=== PATIENT | male | born 1965 | race Caucasian/White ===

== ENCOUNTER → 2018-08-11 12:04 | Outpatient (CLI) | payer OTHER, SELFPAY ==
--- NOTE | 2018-08-11 12:57 | DI.CT.S_ITS ---
PROCEDURE: CT SOFT TISSUE NECK W CON INDICATIONS: RIGHT VOCAL CORD PARALYSIS TECHNIQUE: After the administration of intravenous contrast, 3.0 mm axial sections acquired from the skull base to the upper chest. Additional 1.5 mm axial sections acquired through the true vocal cords. 1 mm thick coronal reformats were generated. For radiation dose reduction, the following was used: automated exposure control. COMPARISON: [facility], CT, SINUS SCREEN WO CONTRAST, 03/10/2015, 14:26. FINDINGS: Image quality: Excellent. Vocal cords: The vocal cords demonstrate a normal, symmetric appearance. No masses or abnormal enhancement can be seen involving. No masses can be seen within the false vocal cords or within the region. Neck spaces: The oropharynx, nasopharynx, and pharynx demonstrate no mucosal lesions. The pyriform sinuses, epiglottis, vallecular, and tongue base all appear normal. Extramucosal spaces of the neck are unremarkable. Lymph nodes: No enlarged lymph nodes seen throughout the neck. Vessels: Visualized vasculature appears patent. Glands: The parotid and submandibular glands appear normal. Thyroid gland demonstrates no significant CT abnormality. Miscellaneous: Visualized brain and orbits appear unremarkable. Lung apices appear clear. Superficial soft tissues appear normal. Bones: No suspicious bony lesions. Visualized sinuses and mastoids appear unremarkable. Degenerative changes are seen, with at least moderate disc space narrowing at C5-C6 and C6-C7. Endplate irregularity and endplate sclerosis can be seen at these levels. IMPRESSION: No focal vocal cord abnormality is seen. As clinically appropriate, please consider a dedicated laryngoscopy, if not already recently done. Dictated by: Ryan [place] M.D. on 08/11/2018 at 12:59 Approved by: Ryan [place] M.D. on 08/11/2018 at 13:02
== END ==
PROVIDERS: Family Provider Physician Assistant; PCP Physician Assistant; Visit Provider Otolaryngology
DX: J38.01 Paralysis of vocal cords and larynx, unilateral (principal)
CPT/HCPCS: 70491; Q9967

== ENCOUNTER 2018-08-28 06:55 | Day surgery (SDC) | payer OTHER, SELFPAY ==
--- NOTE | 2018-08-28 | PATH_ITS ---
[facility] Accession Number: [id number] . 01 Material submitted: . rectum - RECTAL POLYP . 01 Clinical history: . SCREENING COLONOSCOPY . 02 Diagnosis: Rectum, Polyp, Biopsy: Hyperplastic polyp. [facility]/09/01/2018 . 02 Electronically signed: . Lisa Mckeon MD, Pathologist NPI- [id number] . 01 Gross description: . RECTAL POLYP: Received in formalin are 2 fragment(s) of benito, soft tissue measuring 0.1 x 0.1 x 0.1 cm to 0.3 x 0.2 x 0.2 cm which is entirely submitted and submitted entirely in 1 cassette(s) /DMC /DMC . 02 Pathologist provided ICD-10: K62.1 . 02 CPT . 923923 Performed at: 01 [facility] [address] [id number] MD Zach Frank MD Phone: [phone] Performed at: 02 [facility] [address] [address] [place], [place] [id number] MD Lisa Mckeon MD Phone: [phone]
[2018-08-28 07:15] VITALS: BP 127/82; PULSE 44; RESP 15; TEMP 36.6; O2SAT 98
[2018-08-28 07:16] VITALS: BMI 25.0
[2018-08-28] MEDS: SODIUM CHLORIDE 0.9% 1,000 ML 200 ML IV (07:45)
--- NOTE | 2018-08-28 07:48 | PM.HP.1 ---
History of Present Illness Date Patient Seen: 08/28/18 Time Patient Seen: 07:48 Chief complaint: [id number] SCREENING COLONOSCOPY Narrative: 52-year-old man presents for 1st screening colonoscopy. He has a history approximately 25 years ago of undergoing a colonoscopy for a in intestinal concerned that he cannot remember. At the time no polyps were detected. No 1st degree family relatives with history of colon or rectal cancer, no family history of polyps. No history of IBD . Tolerated his prep well No intestinal complaints Patient History Medical History (Updated 08/28/18 @ 07:49 by Paul Stein MD) Asthma (Acute) GERD (gastroesophageal reflux disease) (Acute) Social History household members: spouse Smoking Status: Former smoker (Quit 2013) Tobacco: How many years used: 20 second hand exposure: No alcohol intake: current (Beer a couple times a week) substance use type: does not use Family & Social History Social History: household members spouse Tobacco & Substance use: Smoking Status Former smoker alcohol intake current Meds Home Medications Medication Instructions Recorded Confirmed Type varicella-zoster glycoE [id number] 50 mcg IM ONCE #1 each 04/16/18 07/04/18 Rx adj(PF) 50 mcg/0.5 mL IM susp, kit Allergies Allergy/AdvReac Type Severity Reaction Status Date / Time No Known Drug Allergies Allergy Unverified 07/04/18 11:26 Review of Systems Constitutional Constitutional: Denies fever(s) Eyes Eyes: Denies bulging eyes ENT Ears, Nose, Mouth, and Throat: No lip swelling Cardiovascular Cardiovascular: Denies generalize swelling Respiratory Respiratory: Denies stridor Gastrointestinal Gastrointestinal: Denies coffee ground emesis Musculoskeletal Musculoskeletal: Denies loss of height Integumentary/Breasts Skin/Breast: Denies wounds Neurologic Neurologic: Denies abnormal speech and Denies confusion Psychiatric Psychiatric: Denies confusion Endocrine Endocrine: Denies deepening of the voice Hematologic/Lymphatic Hematologic/Lymphatic: Denies lymphadenopathy Allergic/Immunologic Allergic/Immunologic: Denies lip swelling Exam Vital Signs (past 8 hours): - 08/28/18 07:15 Temperature 97.9 F Pulse Rate 44 L Respiratory Rate 15 Blood Pressure 127/82 Pulse Oximetry 98 Oxygen Delivery Method Room Air Const General: cooperative and healthy appearing Orientation: alert HENMT Head: normal to inspection Nose: nares normal Mouth: oral mucosae normal and lip normal Eyes Eyelids: eyelids normal Conjunctivae: conjunctivae normal Sclera: sclerae normal Neck Neck: supple and other (No thyromegally) Chest Chest: other (LCTAB , regular respiratory effort) Cardio Rhythm: regular rhythm Heart Sounds: S1 normal, S2 normal, no gallops, no murmurs and no rubs Skin General: no rashes or lesions noted Neuro General: alert and awake Psych Appearance: grossly normal Affect: normal affect Assessment & Plan Assessment & Plan narrative: 52-year-old man presents for 1st screening colonoscopy Risks of procedure including , perforation, hypoxia, missed lesion all discussed Patient rated proceed
[2018-08-28] MEDS: MIDAZOLAM 5 MG/5 ML VIAL IV (08:07)
[2018-08-28] MEDS: fentaNYL 250 MCG/5 ML INJ IV (08:08)
--- NOTE | 2018-08-28 08:31 | PM.OP.ENDO ---
Operative Date/Time/Diagnoses Date of procedure: 08/28/18 Time of procedure: 08:31 Pre-op diagnosis: colorectal cancer screening Post-op diagnosis: same Procedure & Clinicians Study performed: Complete screening colonoscopy Cold biopsy forcep polypectomy x1 -distal rectal Same procedure as scheduled: Yes Indications: 52-year-old man presents for 1st of screening colonoscopy -did have a diagnostic colonoscopy some 25 years ago, did not identify polyps at that time Surgeon: Paul Stein Procedure Notes SCOAP/Timeout: Completed Procedure in detail: Patient was brought to the endoscopy suite, time-out was completed. He was sedated over the course of the entire procedure with a total of 6 mg of midazolam and 150 micro g of fentanyl. Digital rectal exam was performed which was without mucosal lesions. His prostate was somewhat firm but without any nodularity. 160 cm colonoscope was advanced through the folds of the rectum rectosigmoid junction and the curvature of the colon until the cecum was encountered. A prominent ileocecal valve was identified as was the appendiceal orifice, there was not a distinct crows foot howerver. The endoscope was then slowly withdrawn. visualizing the intraluminal mucosal surface. A single subtle small sessile polyp was identified in the distal rectum -this was biopsied and removed with the cold biopsy forcep. The scope was retroflexed in the rectum no additional lesions were encountered Prep was adequate There was sigmoid diverticulosis Scope withdrawal time: 18 Sedation minutes: 35 Findings: diverticulosis and polyp Specimen(s): other (Distal rectal small sessile polyp) Complications: none Impression: 1) somewhat firm prostate 2) small distal rectal polyp status post polypectomy 3) sigmoid diverticulosis Recommendations: Colonscopy in 5 years Plan for aftercare: If rectal polyp is hamartomatous on final pathology would be 10 year interval for next colonoscopy Follow up: as needed Disposition: PACU
[2018-08-28 08:37] VITALS: BP 101/58; PULSE 63; RESP 18; TEMP 36.8; O2SAT 98
[2018-08-28 08:42] VITALS: BP 110/67; PULSE 59; RESP 15; O2SAT 97
[2018-08-28 08:49] VITALS: BP 115/71; PULSE 61; RESP 15; TEMP 36.9; O2SAT 98
== END 2018-08-28 08:58 | disposition home or self-care (01) ==
PROVIDERS: Family Provider Physician Assistant; PCP Physician Assistant; Visit Provider Surgery
PROC: 0DJD8ZZ Inspection of Lower Intestinal Tract, Via Natural or Artificial Opening Endoscopic (ICD-10-PCS; CPT 45378; principal; 2018-08-28 07:45)
DX: Z12.11 Encounter for screening for malignant neoplasm of colon (principal); K57.30 Diverticulosis of large intestine without perforation or abscess without bleeding; J45.909 Unspecified asthma, uncomplicated; Z87.891 Personal history of nicotine dependence; K62.1 Rectal polyp
CPT/HCPCS: 45380; 99152; 99153; J2250; J3010

== ENCOUNTER → 2018-10-06 15:32 | Outpatient (CLI) | payer OTHER, SELFPAY ==
--- NOTE | 2018-10-06 15:34 | DI.RAD.S_ITS ---
PROCEDURE: XR CHEST 2V INDICATIONS: Right rib pain TECHNIQUE: 2 views of the chest were acquired. COMPARISON: [facility], , CHEST 2 VIEW, 03/08/2014, 10:09. FINDINGS: Surgical changes and devices: None. Lungs and pleura: Lungs are clear. No pleural effusions or pneumothorax. Mediastinum: Mediastinal contours are normal. Heart size is normal. Bones and chest wall: No suspicious bony abnormalities. Soft tissues appear unremarkable. IMPRESSION: No acute cardiopulmonary disease. Dictated by: Carolina Wynne M.D. on 10/06/2018 at 16:13 Approved by: Carolina Wynne M.D. on 10/06/2018 at 16:15
== END ==
PROVIDERS: PCP Physician Assistant; Visit Provider Registered Nurse
DX: R07.81 Pleurodynia (principal)
CPT/HCPCS: 71046

== ENCOUNTER → 2019-09-01 09:21 | Outpatient (CLI) | payer OTHER, SELFPAY ==
[2019-09-02 00:22] LABS: COVID19 Sendout Not Detected (Not Detect)
== END ==
PROVIDERS: Visit Provider Physician Assistant
DX: R06.02 Shortness of breath (principal)
CPT/HCPCS: 87635

== ENCOUNTER → 2019-09-01 09:28 | Outpatient (CLI) | payer OTHER, SELFPAY ==
--- NOTE | 2019-09-01 09:29 | DI.RAD.S_ITS ---
PROCEDURE: XR CHEST 2V INDICATIONS: cough, r/o pneumonia TECHNIQUE: 2 views of the chest were acquired. COMPARISON: [facility], CR, XR CHEST 2V, 10/06/2018, 15:39. FINDINGS: Surgical changes and devices: None. Lungs and pleura: Lungs are clear. No pleural effusions or pneumothorax. Mediastinum: Mediastinal contours are normal. Heart size is normal. Bones and chest wall: No suspicious bony abnormalities. Soft tissues appear unremarkable. IMPRESSION: No acute cardiopulmonary disease. Dictated by: Carolina Wynne M.D. on 09/01/2019 at 9:54 Approved by: Carolina Wynne M.D. on 09/01/2019 at 9:54
[2019-09-01 10:09] LABS: Add Manual Diff / Slide Review NO; Basophils Absolute Auto 0 /uL (0-100); Basophils Percent Auto 0.6 % (0-2); Eosinophils Absolute Auto 100 /uL (0-450); Eosinophils Percent Auto 1.3 % (2-4); Hematocrit 43.1 % (41-53); Hemoglobin 14.6 g/dL (13.5-17.5); Lymphocytes Absolute Auto 1300 /uL (1100-4500); Lymphocytes Percent Auto 24.1 % (25-40); Mean Corpuscular HGB Conc 33.8 % (30-36); Mean Corpuscular Hemoglobin 30.4 PG (26-34); Mean Corpuscular Volume 89.9 fL (80-100); Monocytes Absolute Auto 500 /uL (0-900); Monocytes Percent Auto 8.7 % (3-14); Neutrophils Absolute Auto 3600 /uL (1500-7000); Neutrophils Percent Auto 65.3 % (50-75); Platelet Count 236 X10^3/uL (150-400); Red Blood Cell Count 4.79 X10^6/uL (4.5-5.9); Red Cell Distribution Width 13.7 % (11.6-14.8); White Blood Cell Count 5.5 X10^3/uL (4.5-11.0)
[2019-09-01 10:21] LABS: BUN Creatinine Ratio 22.3 (6-22); Blood Urea Nitrogen 23 mg/dL (9-20); Calcium 9.5 mg/dL (8.4-10.2); Carbon Dioxide 28 mmol/L (22-32); Chloride 105 mmol/L (98-107); Creatine Kinase 274 U/L (55-170); Estimated Glomerular Filt Rate > 60.0 mL/min (>60); Glucose 98 mg/dL (70-100); HEMOLYSIS < 15 (0-50); Potassium 4.6 mmol/L (3.4-5.1); Sodium 138 mmol/L (137-145)
[2019-09-01 10:33] LABS: NT-proBNP (BNP-Adult 18+) 24 pg/mL (<125); Troponin I < 0.012 ng/mL (0.01-0.034)
[2019-09-01 10:36] LABS: CKMB % Relative Index 1.2 % (1.5-5.0)
== END ==
PROVIDERS: Referring Provider Physician Assistant; Visit Provider Physician Assistant
DX: R05 Cough (principal); R06.02 Shortness of breath
CPT/HCPCS: 36415; 71046; 80048; 82550; 82553; 83880; 84484; 85025; 87635

== ENCOUNTER → 2020-08-18 16:03 | Outpatient (CLI) | payer OTHER, SELFPAY ==
--- NOTE | 2020-08-18 16:04 | DI.RAD.S_ITS ---
PROCEDURE: XR THORACIC SPINE 2V INDICATIONS: Left flank pain, suggestive of radiculopathy TECHNIQUE: 3 views of the thoracic spine were acquired. COMPARISON: None. FINDINGS: Bones: No fractures or dislocations. No suspicious bony lesions. Twelve pairs of ribs are noted, and appear intact where visualized. Soft tissues: No paravertebral stripe thickening. IMPRESSION: Mild convex leftward scoliosis centered at the low thoracic spine. No trauma found, no subluxation present. Mild degenerative disc height reduction over the middle and lower thirds of the thoracic spine. Dictated by: Keon Owen M.D. on 08/18/2020 at 17:05 Approved by: Keon Owen M.D. on 08/18/2020 at 17:05
[2020-08-18 16:39] LABS: Bacteria Urine None Seen; RBC Urine None Seen (0-5/HPF); WBC Urine None Seen (0-5/HPF)
[2020-08-18 17:18] LABS: Appearance Urine UA CLEAR; Bilirubin Urine UA NEGATIVE (NEGATIVE); Color Urine UA YELLOW; Glucose Urine UA NEGATIVE (Negative); Ketones Urine UA NEGATIVE (NEGATIVE); Leukocyte Esterase Urine UA NEGATIVE (NEGATIVE); Nitrite Urine UA NEGATIVE (Negative); Occult Blood Urine UA NEGATIVE (Negative); Protein Urine UA NEGATIVE (Negative); Specific Gravity Urine UA 1.025 (1.000-1.035); Urobilinogen Urine UA 0.2 E.U./dL (0.2); pH Urine UA 6.5 (4.5-8.0)
[2020-08-18 17:50] LABS: Culture Indicated Urine Cult Not Indicated; Urine Comments Microscopic Normal
== END ==
PROVIDERS: PCP Student in an Organized Health Care Education/Training Program; Referring Provider Student in an Organized Health Care Education/Training Program; Visit Provider Student in an Organized Health Care Education/Training Program
DX: R10.9 Unspecified abdominal pain (principal); M41.84 Other forms of scoliosis, thoracic region
CPT/HCPCS: 72070; 81001

== ENCOUNTER → 2021-08-08 14:47 | Outpatient (CLI) | payer BC, SELFPAY ==
[2021-08-08 17:09] LABS: Cholesterol 230 mg/dL (140-199); HDL Cholesterol 89 mg/dL (40-60); LDL Cholesterol Calculated 118 mg/dL (<100); Triglycerides 115 mg/dL (35-150)
== END ==
PROVIDERS: PCP Student in an Organized Health Care Education/Training Program; Referring Provider Student in an Organized Health Care Education/Training Program; Visit Provider Student in an Organized Health Care Education/Training Program
DX: Z13.220 Encounter for screening for lipoid disorders (principal)
CPT/HCPCS: 36415; 80061

== ENCOUNTER → 2021-09-05 10:52 | Outpatient (CLI) | payer BC, SELFPAY ==
--- NOTE | 2021-09-05 10:54 | DI.CT.S_ITS ---
PROCEDURE: CT LUNG LOW DOSE SCREENING INDICATIONS: >20 pack year smoker TECHNIQUE: Noncontrast 2.0-2.5 mm thick sections acquired from the pulmonary apices to the posterior costophrenic angles. 7 mm thick axial MIP, and 5 mm coronal and sagittal reformats were then acquired. A low radiation dose technique was utilized. COMPARISON: None. FINDINGS: Image quality: Diagnostic, given the low radiation dose technique. Lungs and pleura: No acute airspace opacities. No pulmonary nodules or suspicious mass lesions. No pleural effusion or pneumothorax. Mediastinum: Heart size is normal. No pericardial effusion. No mediastinal adenopathy by size criteria. Thoracic aorta and central pulmonary arteries are normal in size. Esophagus is normal in caliber. No hiatal hernia. Bones and chest wall: No suspicious bony lesions. No vertebral body compression fractures. No axillary or supraclavicular adenopathy by size criteria. Thyroid gland is unremarkable. Abdomen: Visualized upper abdomen solid organs and bowel loops appear normal in the absence of contrast. IMPRESSION: 1. No suspicious pulmonary lesions or nodules. LUNG-RADS 1; annual CT follow-up recommended. Dictated by: Michelle Schwarz M.D. on 09/05/2021 at 12:03 Approved by: Michelle Schwarz M.D. on 09/05/2021 at 12:15
== END ==
PROVIDERS: PCP Student in an Organized Health Care Education/Training Program; Referring Provider Student in an Organized Health Care Education/Training Program; Visit Provider Student in an Organized Health Care Education/Training Program
DX: Z87.891 Personal history of nicotine dependence (principal)
CPT/HCPCS: 71250

== ENCOUNTER → 2022-10-03 07:57 | Outpatient (CLI) | payer BC, SELFPAY ==
--- NOTE | 2022-10-03 07:57 | DI.CT.S_ITS ---
PROCEDURE: CT CHEST WO CON INDICATIONS: 20 yr PPD smoking history ALA recommended screening TECHNIQUE: Noncontrast 2.0-2.5 mm thick sections acquired from the pulmonary apices to the posterior costophrenic angles. 7 mm thick axial MIP, and 5 mm coronal and sagittal reformats were then acquired. A low radiation dose technique was utilized. COMPARISON: [facility], CT, CT LUNG LOW DOSE SCREENING, 09/05/2021, 11:05. FINDINGS: Image quality: Diagnostic, given the low radiation dose technique. Lungs and pleura: No suspicious pulmonary nodules. No infiltrate or pleural effusion. Mediastinum: Heart size is normal. No pericardial effusion. No mediastinal adenopathy by size criteria. Thoracic aorta and central pulmonary arteries are normal in size. Esophagus is normal in caliber. No hiatal hernia. Bones and chest wall: No suspicious bony lesions. No vertebral body compression fractures. No axillary or supraclavicular adenopathy by size criteria. Thyroid gland is unremarkable. Abdomen: Visualized upper abdomen solid organs and bowel loops appear normal in the absence of contrast. IMPRESSION: No suspicious lung nodules. LUNG-RADS 1; recommend annual screening lung CT in 12 months. Dictated by: Carolina Wynne M.D. on 10/03/2022 at 8:41 Approved by: Carolina Wynne M.D. on 10/03/2022 at 8:42
== END ==
PROVIDERS: PCP Pediatrics; Referring Provider Pediatrics; Visit Provider Pediatrics
DX: Z12.2 Encounter for screening for malignant neoplasm of respiratory organs (principal); Z87.891 Personal history of nicotine dependence
CPT/HCPCS: 71250

== ENCOUNTER → 2023-01-04 09:25 | Outpatient (CLI) | payer BC, SELFPAY ==
--- NOTE | 2023-01-04 09:27 | DI.RAD.S_ITS ---
PROCEDURE: XR HIP W PEL IF DONE RT 2V INDICATIONS: right hip pain TECHNIQUE: AP pelvis with lateral view(s) of the right hip(s). COMPARISON: None. FINDINGS: Bones: No fractures or dislocations. Pelvic ring appears intact. No suspicious bony lesions. Mild nonuniform joint space narrowing with osteophytic lipping of the acetabulum. Soft tissues: The visualized bowel gas pattern is normal. No suspicious soft tissue calcifications. IMPRESSION: Mild right hip osteoarthritis. Kellgren-Joon Grade 2. Dictated by: Brody Zamora M.D. on 01/04/2023 at 11:58 Approved by: Brody Zamora M.D. on 01/04/2023 at 11:59
[2023-01-04 11:18] LABS: Cholesterol 195 mg/dL (140-199); HDL Cholesterol 75 mg/dL (40-60); LDL Cholesterol Calculated 103 mg/dL (<100); Triglycerides 84 mg/dL (35-150)
== END ==
PROVIDERS: PCP Student in an Organized Health Care Education/Training Program; Referring Provider Student in an Organized Health Care Education/Training Program; Visit Provider Student in an Organized Health Care Education/Training Program
DX: M25.551 Pain in right hip (principal); E78.2 Mixed hyperlipidemia; M16.11 Unilateral primary osteoarthritis, right hip
CPT/HCPCS: 36415; 73502; 80061

== ENCOUNTER → 2023-02-12 08:53 | Outpatient (CLI) | payer BC, SELFPAY ==
--- NOTE | 2023-02-12 | DI.MRI.S_ITS ---
PROCEDURE: MR LUMBAR SPINE WO CON INDICATIONS: LUMBAR DISCOGENIC PAIN SYNDROME TECHNIQUE: Noncontrast sagittal T1 spin echo and T2 fast echo, sagittal STIR, and T2 fast spin echo through the lumbar spine. In cases with scoliosis, additional coronal T2 fast spin echo may be performed. COMPARISON: None. FINDINGS: Image quality: Excellent. Alignment and Curvature: Dextrocurvature of the lumbar spine. Bone Marrow: Marrow is of normal overall signal. No acute vertebral body compression fractures. Spinal Cord: Conus medullaris terminates at the L1-L2 level. Visualized cord demonstrates normal signal and size. Paraspinous Soft Tissues: No paravertebral masses. T12-L1: Disc desiccation height loss. Small disc bulge. No central canal or neural foraminal stenosis. L1-L2: Disc desiccation and mild height loss. Facet arthropathy. No central canal or neural foraminal stenosis. L2-L3: Severe disc desiccation and height loss. Posterior disc bulge. Facet arthropathy. No central canal stenosis. Mild narrowing of the left lateral recess. Mild bilateral neural foraminal stenosis. L3-L4: Disc desiccation and height loss. Posterior disc bulge. Facet arthropathy. No central canal stenosis. Mild left neural foraminal stenosis. No right neural foraminal stenosis. L4-L5: Disc desiccation and posterior disc bulge. Facet arthropathy. Mild central canal stenosis. Moderate right and no left neural foraminal stenosis. L5-S1: Disc desiccation. Minimal posterior disc bulge. Facet arthropathy. No central canal stenosis. Severe right neural foraminal stenosis. Mild left neural foraminal stenosis. IMPRESSION: 1. Multilevel degenerative changes of the lumbar spine as described above. 2. There is severe right neural foraminal stenosis at L5-S1. Moderate right neural foraminal stenosis at L4-5. Other levels of mild stenosis as described above. 3. Mild central canal stenosis at L4-L5. Dictated by: Anhtony Palafox M.D. on 02/12/2023 at 11:27 Approved by: Anthony Palafox M.D. on 02/12/2023 at 11:31
== END ==
PROVIDERS: PCP Student in an Organized Health Care Education/Training Program; Referring Provider Physical Medicine & Rehabilitation; Visit Provider Physical Medicine & Rehabilitation
DX: M51.26 Other intervertebral disc displacement, lumbar region (principal); M47.816 Spondylosis without myelopathy or radiculopathy, lumbar region; M47.817 Spondylosis without myelopathy or radiculopathy, lumbosacral region; M48.07 Spinal stenosis, lumbosacral region; M48.061 Spinal stenosis, lumbar region without neurogenic claudication
CPT/HCPCS: 72148

== ENCOUNTER → 2023-10-04 15:46 | Outpatient (CLI) | payer BC, SELFPAY ==
--- NOTE | 2023-10-04 15:47 | DI.US.S_ITS ---
PROCEDURE: US RENAL COMPLETE INDICATIONS: BILATERAL FLANK PAIN TECHNIQUE: Real-time scanning was performed of the kidneys and bladder, with image documentation. COMPARISON: None. FINDINGS: Kidneys: Kidneys are normal in size. Right kidney measures 11.1 cm long; left kidney measures 10.2 cm long. Right renal cortical thickness is 1.5 cm; left renal cortical thickness is 1.7 cm. There is mild right-sided hydronephrosis. No nephrolithiasis is seen. No left-sided hydronephrosis. No suspicious solid mass lesions. Bladder: Pre-void bladder volume is 68 mL. Post-void residual is 3 mL. Pre-void images demonstrate no intraluminal masses or stones. On pre-void images, bilateral ureteral jets are noted with color Doppler interrogation. (Of note, ureteral jets may not be detectable in up to 25% of cases due to insufficient differences in specific gravity between ureteral and bladder urine). Miscellaneous: No free pelvic fluid. IMPRESSION: 1. Mild right-sided hydronephrosis. No solid appearing renal lesion or nephrolithiasis. 2. Normal appearing left kidney and urinary bladder Dictated by: Cipriano Stiles M.D. on 10/05/2023 at 0:21 Approved by: Cipriano Stiles M.D. on 10/05/2023 at 0:25
== END ==
PROVIDERS: PCP Student in an Organized Health Care Education/Training Program; Referring Provider Student in an Organized Health Care Education/Training Program; Visit Provider Student in an Organized Health Care Education/Training Program
DX: N13.30 Unspecified hydronephrosis (principal); R10.9 Unspecified abdominal pain
CPT/HCPCS: 76770

== ENCOUNTER → 2023-10-14 16:21 | Outpatient (CLI) | payer BC, SELFPAY ==
[2023-10-14 17:28] LABS: Appearance Urine UA CLEAR; Bilirubin Urine UA NEGATIVE (NEGATIVE); Color Urine UA YELLOW; Glucose Urine UA NEGATIVE (Negative); Ketones Urine UA NEGATIVE (NEGATIVE); Leukocyte Esterase Urine UA 1+ (NEGATIVE); Nitrite Urine UA NEGATIVE (Negative); Occult Blood Urine UA NEGATIVE (Negative); Protein Urine UA NEGATIVE (Negative)
[2023-10-14 17:35] LABS: Bacteria Urine Occasional (0-1); Culture Indicated Urine Specimen Cultured; RBC Urine None Seen (0-5/HPF); Squamous Epithelial Cell Urine 0-1 /HPF (0-5/HPF); Urine Volume 10mL (spun); WBC Urine 0-1/HPF (0-5/HPF)
[2023-10-14 18:09] LABS: BUN Creatinine Ratio 20.1 (6-22); Blood Urea Nitrogen 27 mg/dL (9-20); Calcium 9.2 mg/dL (8.4-10.2); Carbon Dioxide 29 mmol/L (22-32); Chloride 104 mmol/L (98-107); Estimated Glomerular Filt Rate > 60 mL/min (>60); Glucose 73 mg/dL (70-100); HEMOLYSIS < 15 (0-50); Potassium 4.3 mmol/L (3.4-5.1); Sodium 137 mmol/L (137-145)
== END ==
LOC: LAB 16:21
PROVIDERS: PCP Student in an Organized Health Care Education/Training Program; Referring Provider Student in an Organized Health Care Education/Training Program; Visit Provider Student in an Organized Health Care Education/Training Program
DX: R10.9 Unspecified abdominal pain (principal)
CPT/HCPCS: 36415; 80048; 81001; 87086

== ENCOUNTER → 2023-11-26 12:11 | Outpatient (CLI) | payer BC, SELFPAY | PROVIDERS: PCP Student in an Organized Health Care Education/Training Program; Visit Provider Physician Assistant Surgical | DX: L02.511 Cutaneous abscess of right hand (principal) | CPT/HCPCS: 87070; 87077; 87147; 87205 ==

== ENCOUNTER → 2024-03-19 15:08 | Outpatient (CLI) | payer BC, SELFPAY | PROVIDERS: PCP Student in an Organized Health Care Education/Training Program; Referring Provider Student in an Organized Health Care Education/Training Program; Visit Provider Student in an Organized Health Care Education/Training Program | DX: R00.0 Tachycardia, unspecified (principal) | CPT/HCPCS: 93246; 93248 ==

== ENCOUNTER → 2024-06-09 09:07 | Outpatient (CLI) | payer BC, SELFPAY ==
[2024-06-09 10:18] LABS: Add Manual Diff / Slide Review NO; Basophils Absolute Auto 0 /uL (0-100); Basophils Percent Auto 1.1 % (0-2); Eosinophils Absolute Auto 100 /uL (0-450); Eosinophils Percent Auto 2.5 % (2-4); Hematocrit 43.4 % (41-53); Hemoglobin 14.7 g/dL (13.5-17.5); Lymphocytes Absolute Auto 1700 /uL (1100-4500); Lymphocytes Percent Auto 36.4 % (25-40); Mean Corpuscular HGB Conc 33.8 % (30-36); Mean Corpuscular Hemoglobin 30.8 PG (26-34); Mean Corpuscular Volume 91.2 fL (80-100); Monocytes Absolute Auto 500 /uL (0-900); Monocytes Percent Auto 9.9 % (3-14); Neutrophils Absolute Auto 2300 /uL (1500-7000); Neutrophils Percent Auto 50.1 % (50-75); Platelet Count 214 X10^3/uL (150-400); Red Blood Cell Count 4.76 X10^6/uL (4.5-5.9); Red Cell Distribution Width 13.4 % (11.6-14.8); White Blood Cell Count 4.6 X10^3/uL (4.5-11.0)
[2024-06-09 10:34] LABS: Erythrocyte Sedimentation Rate 1 MM/HR (0-15)
[2024-06-09 10:48] LABS: Alanine Aminotransferase 24 IU/L (<50); Albumin 4.4 g/dL (3.5-5.0); Albumin Globulin Ratio 1.9 (1.0-2.8); Alkaline Phosphatase 69 U/L (38-126); Aspartate Aminotransferase 34 IU/L (17-59); Bilirubin Total 0.8 mg/dL (0.2-1.3); Blood Urea Nitrogen 24 mg/dL (9-20); Calcium 9.2 mg/dL (8.4-10.2); Carbon Dioxide 25 mmol/L (22-32); Chloride 105 mmol/L (98-107); Cholesterol 250 mg/dL (140-199); Estimated Glomerular Filt Rate > 60 mL/min (>60); Globulin 2.3 g/dL (1.7-4.1); Glucose 101 mg/dL (70-100); HDL Cholesterol 90 mg/dL (40-60); HEMOLYSIS < 15 (0-50); LDL Cholesterol Calculated 145 mg/dL (<100); Potassium 4.7 mmol/L (3.4-5.1); Sodium 137 mmol/L (137-145); Total Protein 6.7 g/dL (6.3-8.2); Triglycerides 73 mg/dL (35-150)
[2024-06-09 11:16] LABS: TSH w/ Reflex to FT4 2.21 uIU/mL (0.47-4.68)
== END ==
PROVIDERS: PCP Student in an Organized Health Care Education/Training Program; Referring Provider Student in an Organized Health Care Education/Training Program; Visit Provider Student in an Organized Health Care Education/Training Program
DX: R20.0 Anesthesia of skin (principal); R20.2 Paresthesia of skin
CPT/HCPCS: 36415; 80053; 80061; 84443; 85025; 85651

== ENCOUNTER → 2024-06-10 16:36 | Outpatient (CLI) | payer BC, SELFPAY ==
--- NOTE | 2024-06-10 16:37 | DI.MRI.S_ITS ---
PROCEDURE: MR HEAD/BRAIN WO CON INDICATIONS: Facial numbness and tingling TECHNIQUE: Noncontrast axial T1 spin echo, axial T2 fast spin echo, sagittal and axial FLAIR, coronal T2 fast spin echo, axial gradient echo, axial diffusion and ADC through the brain. COMPARISON: None. FINDINGS: Image quality: Excellent. CSF Spaces: Basal cisterns are patent. No extra-axial fluid collections. Ventricles are normal in size and shape. Brain: No intracranial masses. Prior hemosiderin deposition can be seen within deep white matter of the left frontal lobe, as on series 10, image 11. Guaman/white matter interface is normal. Brainstem appears normal. Diffusion-weighted images demonstrate no acute infarct. No chronic ischemic insults. Normal intravascular flow voids are present. In this patient with this given history, scrutiny is given to the trigeminal nerves. The trigeminal nerves demonstrate a normal appearance, without masses along their courses, including within the Meckel's caves. Skull and face: Calvarium has normal marrow signal. Orbits appear normal. Apparent prior right lens replacement. Sinuses: Sinuses and mastoids are clear. IMPRESSION: No imaging explanation is found for this patient's presenting symptoms. No findings of acute or subacute infarction can be seen. No prior territorial infarct can be seen. To the limits of this noncontrast study, no findings of intracranial masses or mass effect can be seen. No significant trigeminal nerve abnormality is seen. Prior hemosiderin deposition seen within the deep white matter of the left frontal lobe. Dictated by: Ryan [place] M.D. on 06/10/2024 at 16:51 Approved by: Ryan [place] M.D. on 06/10/2024 at 16:53
== END ==
PROVIDERS: PCP Student in an Organized Health Care Education/Training Program; Referring Provider Student in an Organized Health Care Education/Training Program; Visit Provider Student in an Organized Health Care Education/Training Program
DX: G93.89 Other specified disorders of brain (principal); E83.10 Disorder of iron metabolism, unspecified; R20.0 Anesthesia of skin; R20.2 Paresthesia of skin
CPT/HCPCS: 70551